=== PATIENT | male | born 1955 | race Caucasian/White ===

== ENCOUNTER 2020-04-06 10:29 | Inpatient (IN) | payer MEDICAID ==
[~2020-04-06] VITALS: Ht 190.5 cm; Wt 126.0 kg
--- NOTE | 2020-04-06 10:31 | NUR ---
PATIENT TO ROOM VIA WHEELCHAIR AND PHYSICIAN NOTIFIED OF PATIENT STYATUS
--- NOTE | 2020-04-06 10:35 | NUR ---
PT REPORTS DIFFICULTY BREATHING ASSOCIATED WITH 6 EPISODES OF DIARRHEA AND WEKANESS UPON MOVEMENT X 2 DAYS. REPORTS EXTENSIVE CARDIAC HISTORY AND SURGERIES. PT CHANGED INTO GOWN AND PLACED ON DESIGN DRAFTER CHIEF.
[2020-04-06] MEDS ORDERED: SPIRONOLACTONE50 MG PO (11:01)
[2020-04-06] MEDS ORDERED: METOPROLOL TART50 MG PO (11:01)
[2020-04-06 11:20] LABS: HEMATOCRIT 46.4 % (39.0-50.0); HEMOGLOBIN 15.8 g/dl (14.0-18.0); IMMATURE GRANULOCYTES 0.8 % (0.0-5.0); MEAN CELL VOLUME 95.3 fL CALC (80.0-100.0); MEAN CORPUSCULAR HGB 32.4 pG CALC (26.0-32.0); MEAN CORPUSCULAR HGB CONC 34.1 g/dL CAL (32.0-36.0); NEUT# 4.64 thou/uL (1.82-7.42); RED BLOOD COUNT 4.87 mill/uL (4.70-6.10); RED CELL DISTRI WIDTH 13.2 % (11.5-15.5)
[2020-04-06 11:26] LABS: INTERNATIONAL NORMALIZED RATIO 1.1 RATIO (0.7-1.3)
[2020-04-06 11:29] LABS: ALBUMIN 4.2 g/dL (3.2-5.0); ALKALINE PHOSPHATASE 55 u/l (38-126); BILIRUBIN, TOTAL 0.7 mg/dL (0.0-1.4); CHLORIDE 106 mmol/l (95-108); CREATININE 1.4 mg/dL (0.7-1.3); GFR 51 ML/MIN (>=60 (CALC)); GFR FOR AFR.AMER. > 60 ML/MIN (>=60 (CALC)); SGOT/AST 32 u/l (19-48); SODIUM 134 mmol/l (137-146)
[2020-04-06 11:32] LABS: BUN 35 mg/dL (8-23); BUN/CREATININE RATIO 25 (12-20 (CALC))
[2020-04-06 11:33] LABS: ANION GAP 18 (6-22 (CALC)); CARBON DIOXIDE 17 mmol/l (22-30)
[2020-04-06 11:34] LABS: POTASSIUM 6.5 mmol/l (3.5-5.1)
--- NOTE | 2020-04-06 11:35 | NUR ---
PT CALLED TO NURSES STATION REQUESTING BEDSIDE COMMODE STOMACH "FEELING GURGLING." BSC PLACED BEDSIDE AND ADVISED PT TO NOTIFY NURSE IF NEEDING TO USE COMMODE. VERBALIZED UNDERSTANDIGN. CALL LIGHT WITHIN REACH. PROGRAMS MANAGER IN PLACE.
[2020-04-06 11:41] LABS: MYOGLOBIN 85 ng/mL (0 - 121)
--- NOTE | 2020-04-06 12:07 | NUR ---
DR CUMMINGS IN ROOM SPEAKIGN WITH PT
--- NOTE | 2020-04-06 12:10 | NUR ---
CALCIUM GLUCONATE INFUSING TO LAC WITHOUT DIFFICULTY. SUPERVISOR CEREAL IN PLACE. VSS. VERALIZES NO NEEDS AT THIS TIME. CALL LIGHT WITHIN REACH.
--- NOTE | 2020-04-06 13:00 | NUR ---
PT RESTING ON STRETCHER IN NO APPARENT DISTRESS. RESP EVEN AN UNLABORED. SKIN TEMP COOL. HELMET BINDER IN PLACE. CALCIUM GLUCONATE CONTINUOUS TO INFUSE WITHOUT DIFFICULTY. CALL LIGHT WITHIN REACH.
--- NOTE | 2020-04-06 13:35 | NUR ---
Admission Note Report Given to: MALIA KELLEY Transported by: Wheelchair X Stretcher Transported with: X Nurse Transporter X Patent IV O2 X Leather Coverer Location: ICU X MS2 PT REPORT GIVEN TO MALIA KELLEY AND TRANSPORTED TO [facility] VIA STRETCHER WITH TELE IN PLACE.
[2020-04-06 13:50] VITALS: BP 119/90
--- NOTE | 2020-04-06 13:50 | NUR ---
PATIENT RECEIVED FROM ER IN STABLE CONDITION AT THIS TIME. PATIENT ALERT AND ORIENTED AND ORIENTED TO ROOM AND SAFTEY MEASURES. PATIENT DENIES ANY PAIN AT THIS TIME AND RESPIRATIONS ARE NON-LABORED AT THIS TIME. PATIENT IV PATENT IN LAC AND IS SALINE LOCKED AND FLUSHED WITHOUT RESITANCE. TELE MONITOR IN PLACE AND OPERATIONAL. PATIENT VERBALIZES UNDERSTANDING OF SAFETY PROCEEDURES AND CALL LIGHT WITHIN REACH AND SIDERAILS UP X 2
[2020-04-06 16:00] VITALS: BP 126/82
--- NOTE | 2020-04-06 16:10 | NUR ---
PT IS RELAXING IN BED WITH NO DISTRESS NOTED. IV SITE IS FREE FROM REDNESS OR EDEMA.
[2020-04-06 19:30] VITALS: BP 107/83
--- NOTE | 2020-04-06 20:30 | NUR ---
rECEIVED REPORT FOR THIS PT. IN BED WITH EYES OPEN AND ABLE TO MAKE NEEDS KNOWN. dENIES RESPIRATORY DISTRESS. MEDICATIONS GIVEN AND TOLERATED WELL. CONTINENT OF B/B AND USES THE URINAL WITH NO COMPLICATIONS.
[2020-04-07] VITALS: BP 109/80
[2020-04-07 04:00] VITALS: BP 100/74
--- NOTE | 2020-04-07 04:46 | NUR ---
pT IN BED WITH EYES CLOSED. nO S/S OF DISTRESS NOTED. STATED HE HAD DIFFICULTY FALLING ASLEEP DURING THE NIGHT . ENCOURAGED PT TO REPOSITION AND DIM HIS ROOM LIGHT AND HE AGREED.
[2020-04-07 07:33] VITALS: BP 103/57
--- NOTE | 2020-04-07 07:33 | NUR ---
PT LAYING IN BED. A&O X3. NO DISTRESS NOTED. PT DENIES ANY CP. DENIES ANY SOB. DENIES ANY PALPITATIONS. ASSESSMENT COMPLETED. DISCUSSED POC. CALL LIGHT IN REACH. CONTINUE TO MONITOR.
--- NOTE | 2020-04-07 08:17 | NUR ---
DR BEASLEY AND Woody ROPER ALIGNING CHECKER AT BEDSIDE DISCUSSING POC
[2020-04-07 09:38] LABS: ANION GAP 9 (6-22 (CALC)); BUN 30 mg/dL (8-23); BUN/CREATININE RATIO 26 (12-20 (CALC)); CHLORIDE 106 mmol/l (95-108); CREATININE 1.1 mg/dL (0.7-1.3); GFR > 60 ML/MIN (>=60 (CALC)); GFR FOR AFR.AMER. > 60 ML/MIN (>=60 (CALC)); POTASSIUM 4.7 mmol/l (3.5-5.1); SODIUM 133 mmol/l (137-146)
[2020-04-07 09:39] LABS: HEMOGLOBIN 13.9 g/dl (14.0-18.0); MEAN CELL VOLUME 100.5 fL CALC (80.0-100.0); MEAN CORPUSCULAR HGB 31.7 pG CALC (26.0-32.0); MEAN CORPUSCULAR HGB CONC 31.6 g/dL CAL (32.0-36.0); RED BLOOD COUNT 4.38 mill/uL (4.70-6.10); RED CELL DISTRI WIDTH 13.3 % (11.5-15.5)
[2020-04-07 09:56] LABS: CARBON DIOXIDE 23 mmol/l (22-30)
[2020-04-07 10:30] VITALS: BP 119/75
--- NOTE | 2020-04-07 11:17 | NUR ---
PT SITTING IN COUCH. INSTRUCTED PT TO CALL WHEN STOOL SAMPLE WAS OBTAINED. UPDATED PT ON MORNING LAB RESULTS. CALL LIGHT IN REACH. CONTINUE TO MONITOR.
--- NOTE | 2020-04-07 11:45 | NUR ---
STOOL SAMPLE OBTAINED. STOOL DARK IN COLOR. LABELED AND TAKEN TO LAB.
--- NOTE | 2020-04-07 13:17 | NUR ---
PT UPDATED ON OCCULT STOOL RESULTS AND POC. PT VERBALIZED UNDERSTANDING. CALL LIGHT IN REACH. CONTINUE TO MONITOR.
--- NOTE | 2020-04-07 14:16 | NUR ---
CALLED DR. DURÁN AT [phone] SPOKE TO HIM PERSONALLY REGARDING PT. HE STATED OK AND THANK YOU.
[2020-04-07 15:00] VITALS: BP 110/79
[2020-04-07 18:12] LABS: HEMATOCRIT 41.1 % (39.0-50.0); HEMOGLOBIN 13.7 g/dl (14.0-18.0)
--- NOTE | 2020-04-07 19:00 | NUR ---
OR CONSENT FOR EGD AND POSSIBLE COLONOSCOPY OBTAINED. BSC PLACED AT BEDSIDE.
--- NOTE | 2020-04-07 19:53 | NUR ---
PATIENT RESTING IN BED AT THIS TIME-AWAKE ALERT AND ORIENTEDX3. PATIENT IS IN PROCESS OF DRINKING GOLYTELY PREP FOR POSSIBLE COLONOSCOPY TOMORROW-BSC AT BEDSIDE. PATIENT WITH GOOD UNDERSTANDING OF HOW THE GOLYTELY PREP WILL PROCEED. CONSET IS SIGNED. IVF NS PATENT AND INFUSING VIA LAC SITE AT 80CC/HR. SITE IS HEALTHY AT THIS TIME. CALL LIGHT IN REACH. WILL CONT TO MONITOR.
[2020-04-07 20:00] VITALS: BP 130/89
--- NOTE | 2020-04-07 22:00 | NUR ---
PATIENT COMPLETED GOLYTELY PREP. PATIENT HAD VERY LARGE FORMED BROWN STOOL WELL BROWN WATERY STOOLS. PATIENT MEDICATED FOR ANXIETY WITH XANAX 0.5MG PO AND FOR SLEEP WITH SONATA 5MG PO . IVF NS PATENT AND INFUSING VIA LAC SITE AT 80CC/HR. CALL LIGHT IN REACH. WILL CONT TO MONITOR.
[2020-04-08] VITALS (12 sets, daily range): BP systolic 108–133; BP diastolic 68–83
--- NOTE | 2020-04-08 00:20 | NUR ---
PATIENT APPEARS SLEEPING AT THIS TIME-EYES CLOSED AND POSITIONED ON LEFT SIDE. RESPS ARE EVEN AND UNLABORED. BSC EMPTIED FOR MODERATE AMT OF LIGHT BROWN WATERY STOOL. NPO FOR PROCEDURE IN AM. IVF PATENT AND INFUSING VIA LAC SITE AT 80CC/HR. CALL LIGHT IN REACH. WILL CONT TO MONITOR.
[2020-04-08 01:03] LABS: HEMATOCRIT 38.3 % (39.0-50.0); HEMOGLOBIN 12.9 g/dl (14.0-18.0)
--- NOTE | 2020-04-08 02:47 | NUR ---
CALLED TO PATIENT ROOM- IV FOUND DISLODGED FROM LAC SITE-CATH INTACT. DSD APPLIED TO LEFT AC SITE. NEW IV SITE STARTED TO LEFT HAND-#22 GAUGE WITH GOOD BLOOD RETURN. IVF NS INFUSING AT 80CC/HR ORDERED. PATIENT REMAINS NPO FOR GI PROCEDURES LATER TODAY. PATIENT IS FRUSTRATED OVER NOT BEING ABLE TO SLEEP- BEING AWAKEN FOR BM'S, TELE MONITOR BEING OFF AND IV BEING DISLODGED. PATIENT HAD ANOTHER PALE YELLOW WATERY STOOL WITH FLECKS. OFFERED CLEAN GOWN BUT PATIENT REFUSED AT THIS TIME-"JUST WANTS TO GO TO SLEEP". CALL LIGHT IN REACH. WILL CONT TO MONITOR.
--- NOTE | 2020-04-08 04:17 | NUR ---
PATIENT APPEARS SLEEPING AT THIS TIME WITH HOB ELEVATED AND EYES CLOSED. RESPS ARE EVEN AND UNLABORED. RFEMAINS NPO FOR GI PROCEDURE LATER TODAY. IVF NS PATENT ANDINFUSING VIA LEFT HAND SITE AT 80CC/HR. SITE REMAINS HEALTHY. CALL LIGHT IN REACH. WILL CONT TO MONITOR.
[2020-04-08 06:53] LABS: HEMATOCRIT 38.8 % (39.0-50.0); HEMOGLOBIN 12.9 g/dl (14.0-18.0)
--- NOTE | 2020-04-08 07:05 | NUR ---
PT SLEEPING IN BED, AWAKENED TO COMPLETE ASSESSMENT. A&O X3. NO DISTRESS NOTED. PT DENIES ANY PAIN AT THIS TIME. STATES HE FINISHED HIS PREP, PER AUTO DAMAGE ADJUSTER REPORT, PTS BM WERE BEGINNING TO BECOME CLEARER IN COLOR. UPDATED PT ON POC AND EXPECTED PROCEDURE. HGB SUSTAINING AT 12.9. ASSESSMENT COMPLETED. DISCUSSED POC. CALL LIGHT IN REACH. CONTINUE TO MONITOR.
--- NOTE | 2020-04-08 08:38 | NUR ---
DR BEASLEY AND Woody ROPER UX DESIGN MANAGER AT BEDSIDE DISCUSSING POC
--- NOTE | 2020-04-08 08:39 | NUR ---
DR BEASLEY AND Tamiko JOEL FAGOTING MACHINE OPERATOR AT BEDSIDE DISCUSSING POC
--- NOTE | 2020-04-08 12:19 | NUR ---
PT TAKEN VIA STRETCHER ACCOMPANIED BY Laxmi MADERA RN TO OR
--- NOTE | 2020-04-08 14:02 | NUR ---
PT ARRIVED VIA STRETCHER ACCOMPANIED BY SAFIA MURPHY. PT IN STABLE CONDITION ON ROOM AIR. PT DRINKING JUICE WITH NO DIFFICULTY. CONNECTED PT BACK TO [employer]. CALL LIGHT IN REACH. CONTINUE TO MONITOR.
--- NOTE | 2020-04-08 17:42 | NUR ---
PT SITTING IN BED. NO DISTRESS NOTED. CALL LIGHT IN REACH. CONTINUE TO MONITOR.
--- NOTE | 2020-04-08 20:06 | NUR ---
PATIENT RESTING IN BED AT THIS TIME WATCHING TV. AWAKE ALERT AND ORIENTEDX3. IVF NS PATENT AND INFUSING VIA LEFT HAND SITE AT 80CC/HR. SITE IS HEALTHY. TELE MONITOR IN PLACE. VOIDING QS STU URINE IN BSC. CALL LIGHT IN REACH. WILL CONT TO MONITOR.
--- NOTE | 2020-04-08 20:38 | NUR ---
RESTING IN BED-MEDICATED WITH XANAX 0.5MG PO FOR ANXIETY PER PATIENT REQUEST. CALL LIGHT IN REACH. WILL CONT TO MONITOR.
[2020-04-09] VITALS: BP 115/81
--- NOTE | 2020-04-09 00:24 | NUR ---
PATIENT APPEARS SLEEPING AFTER TAKING SONATA FOR SLEEP. EYES ARE CLOSED. RESPS ARE EVEN AND UNLABORED. TELE MONITOR IN PLACE. IVF NS PATENT AND INFUSING VIA LEFT HAND SITE AT 80CC/HR. SITE REMAINS HEALTHY. CALL LIGHT IN REACH. WILL CONT TO MONITOR.
[2020-04-09 04:00] VITALS: BP 116/82
--- NOTE | 2020-04-09 05:36 | NUR ---
APPEARS SLEEPING AT THIS TIME POSITIONED ON HIS LEFT SIDE. RESPS EVEN AND UNLABORED. VOIDING QS STU URINE. IVF PATENT AND INFUSING VIA LEFT HAND SITE AT 80CC/HR. CALL LIGHT IN REACH. WILL CONT TO MONITOR.
[2020-04-09 06:11] LABS: HEMATOCRIT 37.8 % (39.0-50.0); HEMOGLOBIN 12.3 g/dl (14.0-18.0); IMMATURE GRANULOCYTES 0.5 % (0.0-5.0); MEAN CELL VOLUME 97.9 fL CALC (80.0-100.0); MEAN CORPUSCULAR HGB 31.9 pG CALC (26.0-32.0); MEAN CORPUSCULAR HGB CONC 32.5 g/dL CAL (32.0-36.0); NEUT# 3.03 thou/uL (1.82-7.42); RED BLOOD COUNT 3.86 mill/uL (4.70-6.10); RED CELL DISTRI WIDTH 13.1 % (11.5-15.5)
[2020-04-09 06:17] LABS: ALBUMIN 3.2 g/dL (3.2-5.0); ALKALINE PHOSPHATASE 44 u/l (38-126); ANION GAP 7 (6-22 (CALC)); BILIRUBIN, TOTAL 0.3 mg/dL (0.0-1.4); BUN 17 mg/dL (8-23); BUN/CREATININE RATIO 15 (12-20 (CALC)); CARBON DIOXIDE 28 mmol/l (22-30); CHLORIDE 106 mmol/l (95-108); CREATININE 1.1 mg/dL (0.7-1.3); GFR > 60 ML/MIN (>=60 (CALC)); GFR FOR AFR.AMER. > 60 ML/MIN (>=60 (CALC)); POTASSIUM 4.9 mmol/l (3.5-5.1); SGOT/AST 31 u/l (19-48); SODIUM 136 mmol/l (137-146); TOTAL PROTEIN 5.3 g/dL (6.3-8.2)
[2020-04-09 07:28] VITALS: BP 122/83
--- NOTE | 2020-04-09 07:28 | NUR ---
PT LAYING IN BED. A&O X3. NO DISTRESS NOTED. PT REPORTS TO BE FEELING WELL THIS MORNING, REPORTS NO BOWEL MOVEMENT THROUGHOUT THE NIGHT. HGB STABLE AT 12.3. ASSESSMENT COMPLETED. DISCUSSED POC. ASSESSMENT COMPLETED. CALL LIGHT IN REACH. CONTINUE TO MONITOR.
--- NOTE | 2020-04-09 09:00 | NUR ---
DR BEASLEY AT BEDSIDE DISCUSSING POC
[2020-04-09] MEDS ORDERED: LASIX 20 MG TAB20 MG PO (09:05)
[2020-04-09 11:25] VITALS: BP 121/76
--- NOTE | 2020-04-09 11:54 | NUR ---
Discharge instructions given. Patient verbalizes understanding of same. Discharged in stable condition to home accompanied by this song writer. Discharge instructions given. Patient verbalizes understanding of same. All belongings sent with pt.
== END 2020-04-09 11:54 | disposition home or self-care (01) | DRG 379 ==
LOC: ED 10:29 → ED-I 11:08 → ED 12:22 → MS2 12:23
PROVIDERS: Emergency Medicine; Nurse Practitioner; ADMIT Internal Medicine; ATTEND Internal Medicine
PROC: 0DJD8ZZ Inspection of Lower Intestinal Tract, Via Natural or Artificial Opening Endoscopic (ICD-10-PCS; principal; 2020-04-08)
PROC: 0DB68ZX Excision of Stomach, Via Natural or Artificial Opening Endoscopic, Diagnostic (ICD-10-PCS; 2020-04-08)
DX: K92.1 Melena (principal); E87.5 Hyperkalemia; R73.9 Hyperglycemia, unspecified; R07.9 Chest pain, unspecified; I10 Essential (primary) hypertension; J44.9 Chronic obstructive pulmonary disease, unspecified; K29.70 Gastritis, unspecified, without bleeding; K20.90 Esophagitis, unspecified without bleeding; K44.9 Diaphragmatic hernia without obstruction or gangrene; F17.210 Nicotine dependence, cigarettes, uncomplicated; Z20.828 Contact with and (suspected) exposure to other viral communicable diseases; Z79.899 Other long term (current) drug therapy; Z88.0 Allergy status to penicillin
CPT/HCPCS: S0164

== ENCOUNTER 2021-09-07 07:10 | Emergency (ER) | payer MEDICARE, MEDICAID ==
[~2021-09-07] VITALS: Ht 190.5 cm; Wt 120.5 kg
[~2021-09-07 07:10] MED LIST: LASIX 20 MG TAB20 MG PO; METOPROLOL TART50 MG PO; SPIRONOLACTONE50 MG PO
[2021-09-07 08:03] LABS: IMMATURE GRANULOCYTES 0.4 % (0.0-5.0); MEAN CELL VOLUME 92.3 fL CALC (80.0-100.0); MEAN CORPUSCULAR HGB 30.8 pG CALC (26.0-32.0); MEAN CORPUSCULAR HGB CONC 33.4 g/dL CAL (32.0-36.0); NEUT# 5.66 thou/uL (1.82-7.42); RED BLOOD COUNT 5.42 mill/uL (4.70-6.10); RED CELL DISTRI WIDTH 12.8 % (11.5-15.5)
[2021-09-07 08:04] LABS: HEMOGLOBIN 16.7 g/dl (14.0-18.0)
[2021-09-07 08:06] LABS: URINE BILIRUBIN - DIPSTICK NEGATIVE (NEGATIVE); URINE BLOOD DIPSTICK NEGATIVE (NEGATIVE); URINE COLOR YELLOW; URINE GLUCOSE - DIPSTICK NEGATIVE (NEGATIVE); URINE KETONE NEGATIVE (NEGATIVE); URINE LEUK ESTERASE NEGATIVE (NEGATIVE); URINE PROTEIN - DIPSTICK NEGATIVE (NEG-TRACE); URINE UROBILINOGEN - DIPSTICK 0.2 E.U./dL (0.2)
[2021-09-07 08:10] LABS: URINE NITRITE - DIPSTICK NEGATIVE (Negative)
[2021-09-07 08:14] LABS: BILIRUBIN, TOTAL 0.3 mg/dL (0.0-1.4); BUN 15 mg/dL (8-23); BUN/CREATININE RATIO 13 (12-20 (CALC)); CHLORIDE 106 mmol/l (95-108); CREATININE 1.2 mg/dL (0.7-1.3); GFR > 60 ML/MIN (>=60 (CALC)); GFR FOR AFR.AMER. > 60 ML/MIN (>=60 (CALC)); LIPASE 53 u/l (23-300); POTASSIUM 4.8 mmol/l (3.5-5.1); SGOT/AST 33 u/l (19-48); SODIUM 135 mmol/l (137-146)
[2021-09-07 08:15] LABS: ALBUMIN 4.2 g/dL (3.2-5.0); ALKALINE PHOSPHATASE 92 u/l (38-126); ANION GAP 16 (6-22 (CALC)); CARBON DIOXIDE 18 mmol/l (22-30); TOTAL PROTEIN 6.5 g/dL (6.3-8.2)
[2021-09-07 11:15] VITALS: BP 133/77
== END 2021-09-07 11:15 | disposition home or self-care (01) ==
LOC: ED 07:10
PROC: 0T9B70Z Drainage of Bladder with Drainage Device, Via Natural or Artificial Opening (ICD-10-PCS; principal; 2021-09-07)
DX: R33.9 Retention of urine, unspecified (principal); Q60.0 Renal agenesis, unilateral; N20.0 Calculus of kidney; I10 Essential (primary) hypertension; F17.200 Nicotine dependence, unspecified, uncomplicated; Z95.1 Presence of aortocoronary bypass graft

== ENCOUNTER 2021-09-10 04:39 | Emergency (ER) | payer MEDICARE, MEDICAID ==
[2021-09-10] VITALS (9 sets, daily range): BP systolic 141–172; BP diastolic 85–106
[~2021-09-10] VITALS: Ht 190.5 cm; Wt 120.5 kg
[2021-09-10 05:05] LABS: URINE BILIRUBIN - DIPSTICK NEGATIVE (NEGATIVE); URINE BLOOD DIPSTICK TRACE-INTACT (NEGATIVE); URINE COLOR YELLOW; URINE GLUCOSE - DIPSTICK NEGATIVE (NEGATIVE); URINE KETONE NEGATIVE (NEGATIVE); URINE PH 8.5 (4.5-8.0); URINE UROBILINOGEN - DIPSTICK 0.2 E.U./dL (0.2)
[2021-09-10 05:10] LABS: URINE LEUK ESTERASE SMALL (NEGATIVE); URINE NITRITE - DIPSTICK POSITIVE (Negative); URINE PROTEIN - DIPSTICK NEGATIVE (NEG-TRACE)
[2021-09-10 05:11] LABS: URINE BACTERIA MODERATE hpf; URINE CALCIUM OXALATE CRYSTALS MODERATE lpf; URINE EPITHELIAL CELLS MODERATE EPI/hpf (0-FEW); URINE WBC 20-50 WBC/hpf (0-5)
[2021-09-10 05:18] LABS: HEMATOCRIT 52.6 % (39.0-50.0); HEMOGLOBIN 18.1 g/dl (14.0-18.0); IMMATURE GRANULOCYTES 0.1 % (0.0-5.0); MEAN CELL VOLUME 91.2 fL CALC (80.0-100.0); MEAN CORPUSCULAR HGB 31.4 pG CALC (26.0-32.0); MEAN CORPUSCULAR HGB CONC 34.4 g/dL CAL (32.0-36.0); NEUT# 6.52 thou/uL (1.82-7.42); RED BLOOD COUNT 5.77 mill/uL (4.70-6.10); RED CELL DISTRI WIDTH 12.7 % (11.5-15.5)
[2021-09-10 05:26] LABS: ALBUMIN 4.3 g/dL (3.2-5.0); ALKALINE PHOSPHATASE 83 u/l (38-126); ANION GAP 15 (6-22 (CALC)); BILIRUBIN, TOTAL 0.7 mg/dL (0.0-1.4); BUN 18 mg/dL (8-23); BUN/CREATININE RATIO 13 (12-20 (CALC)); CARBON DIOXIDE 21 mmol/l (22-30); CHLORIDE 105 mmol/l (95-108); CREATININE 1.4 mg/dL (0.7-1.3); GFR 51 ML/MIN (>=60 (CALC)); GFR FOR AFR.AMER. > 60 ML/MIN (>=60 (CALC)); POTASSIUM 4.3 mmol/l (3.5-5.1); SGOT/AST 37 u/l (19-48); SODIUM 137 mmol/l (137-146); TOTAL PROTEIN 7.2 g/dL (6.3-8.2)
[2021-09-10] MEDS ORDERED: CIPROFLOXACN500 MG PO (05:52)
== END 2021-09-10 06:30 | disposition home or self-care (01) ==
LOC: ED 04:39
PROVIDERS: Emergency Medicine
PROC: 0T9B70Z Drainage of Bladder with Drainage Device, Via Natural or Artificial Opening (ICD-10-PCS; principal; 2021-09-10)
DX: R33.9 Retention of urine, unspecified (principal); N39.0 Urinary tract infection, site not specified; R97.20 Elevated prostate specific antigen [PSA]; I10 Essential (primary) hypertension; F17.200 Nicotine dependence, unspecified, uncomplicated; Z95.1 Presence of aortocoronary bypass graft
CPT/HCPCS: J1956

== ENCOUNTER 2021-12-19 09:03 | Emergency (ER) | payer MEDICARE, MEDICAID ==
[~2021-12-19] VITALS: Ht 188 cm; Wt 121.2 kg
[~2021-12-19 09:03] MED LIST changes: +CIPROFLOXACN500 MG PO
[2021-12-19] MEDS ORDERED: CEPHALEXIN500 MG PO ×2 (09:50→10:01)
[2021-12-19] MEDS ORDERED: TAMSULOSIN0.4 MG PO (09:56)
[2021-12-19] MEDS ORDERED: TRAMADOL HYDROC50 M1 PO (09:57)
[2021-12-19 10:06] VITALS: BP 120/81
== END 2021-12-19 10:07 | disposition home or self-care (01) ==
LOC: ED 09:03
PROC: 0HQGXZZ Repair Left Hand Skin, External Approach (ICD-10-PCS; principal; 2021-12-19)
DX: S61.211A Laceration without foreign body of left index finger without damage to nail, initial encounter (principal); S61.213A Laceration without foreign body of left middle finger without damage to nail, initial encounter; I10 Essential (primary) hypertension; F17.200 Nicotine dependence, unspecified, uncomplicated; W10.9XXA Fall (on) (from) unspecified stairs and steps, initial encounter; Y92.009 Unspecified place in unspecified non-institutional (private) residence as the place of occurrence of the external cause; Z95.1 Presence of aortocoronary bypass graft

== ENCOUNTER 2021-12-26 09:27 | Emergency (ER) | payer MEDICARE, MEDICAID ==
[~2021-12-26] VITALS: Ht 188 cm; Wt 100.0 kg
[~2021-12-26 09:27] MED LIST changes: +CEPHALEXIN500 MG PO; +TAMSULOSIN0.4 MG PO; +TRAMADOL HYDROC50 M1 PO
[2021-12-26 09:56] VITALS: BP 141/75
== END 2021-12-26 09:59 | disposition home or self-care (01) ==
LOC: ED 09:27
DX: T81.33XA Disruption of traumatic injury wound repair, initial encounter (principal); Y84.8 Other medical procedures as the cause of abnormal reaction of the patient, or of later complication, without mention of misadventure at the time of the procedure

== ENCOUNTER 2021-12-31 09:40 | Emergency (ER) | payer MEDICARE, MEDICAID ==
[~2021-12-31] VITALS: Ht 188 cm; Wt 120.2 kg
[2021-12-31 10:10] VITALS: BP 142/89
== END 2021-12-31 10:22 | disposition home or self-care (01) ==
LOC: ED 09:40
DX: S61.211D Laceration without foreign body of left index finger without damage to nail, subsequent encounter (principal); X58.XXXD Exposure to other specified factors, subsequent encounter; I10 Essential (primary) hypertension; Z95.1 Presence of aortocoronary bypass graft; F17.200 Nicotine dependence, unspecified, uncomplicated

== ENCOUNTER 2022-01-23 01:06 | Emergency (ER) | payer MEDICARE, MEDICAID ==
[~2022-01-23] VITALS: Ht 188 cm; Wt 118.0 kg
[2022-01-23 01:15] VITALS: BP 142/104
[2022-01-23 01:31] VITALS: BP 113/79
[2022-01-23] MEDS ORDERED: LASIX 20 MG TAB20 MG PO (01:41)
[2022-01-23 01:45] VITALS: BP 130/83
[2022-01-23] MEDS ORDERED: TAMSULOSIN0.4 MG PO (01:45)
[2022-01-23] MEDS ORDERED: HYDROXYZ PAM50 MG PO (01:45)
[2022-01-23] MEDS ORDERED: BACTRIM DS1 TAB PO (01:45)
[2022-01-23 02:01] VITALS: BP 144/97
== END 2022-01-23 02:17 | disposition home or self-care (01) ==
LOC: ED 01:06
PROC: 0T9B70Z Drainage of Bladder with Drainage Device, Via Natural or Artificial Opening (ICD-10-PCS; principal; 2022-01-23)
DX: R33.9 Retention of urine, unspecified (principal); I10 Essential (primary) hypertension; F17.200 Nicotine dependence, unspecified, uncomplicated; Z95.1 Presence of aortocoronary bypass graft

== ENCOUNTER 2022-01-30 12:40 | Emergency (ER) | payer MEDICARE, MEDICAID ==
[~2022-01-30] VITALS: Ht 188 cm; Wt 113.6 kg
[~2022-01-30 12:40] MED LIST changes: +BACTRIM DS1 TAB PO; +HYDROXYZ PAM50 MG PO
[2022-01-30 12:48] VITALS: BP 124/87
[2022-01-30] MEDS ORDERED: VALIUM2 MG PO (12:56)
[2022-01-30 13:00] VITALS: BP 118/97
[2022-01-30 13:30] VITALS: BP 135/89
[2022-01-30 14:00] VITALS: BP 121/87
[2022-01-30 14:06] VITALS: BP 121/87
== END 2022-01-30 14:06 | disposition home or self-care (01) ==
LOC: ED 12:40
DX: Z46.6 Encounter for fitting and adjustment of urinary device (principal); R33.9 Retention of urine, unspecified; I10 Essential (primary) hypertension; F17.210 Nicotine dependence, cigarettes, uncomplicated; Z95.1 Presence of aortocoronary bypass graft

== ENCOUNTER 2022-06-21 04:47 | Emergency (ER) | payer MEDICARE, MEDICAID ==
[~2022-06-21] VITALS: Ht 188 cm; Wt 113.0 kg
[~2022-06-21 04:47] MED LIST changes: +VALIUM2 MG PO
[2022-06-21] MEDS ORDERED: BACTRIM DS1 TAB PO (05:20)
[2022-06-21 05:56] VITALS: BP 107/79
[2022-06-21 06:01] LABS: URINE BILIRUBIN - DIPSTICK NEGATIVE (NEGATIVE); URINE BLOOD DIPSTICK MODERATE (NEGATIVE); URINE COLOR YELLOW; URINE GLUCOSE - DIPSTICK NEGATIVE (NEGATIVE); URINE KETONE NEGATIVE (NEGATIVE); URINE UROBILINOGEN - DIPSTICK 0.2 E.U./dL (0.2)
[2022-06-21 06:06] LABS: URINE LEUK ESTERASE MODERATE (NEGATIVE); URINE NITRITE - DIPSTICK POSITIVE (Negative)
[2022-06-21 06:08] LABS: URINE EPITHELIAL CELLS MODERATE EPI/hpf (0-FEW); URINE PROTEIN - DIPSTICK NEGATIVE (NEG-TRACE); URINE RBC 25-50 RBC/hpf (0-5); URINE WBC >100 WBC/hpf (0-5)
[2022-06-21 06:09] LABS: URINE BACTERIA MANY hpf
== END 2022-06-21 06:03 | disposition home or self-care (01) ==
LOC: ED 04:47
PROVIDERS: Family Medicine
PROC: 0T9B70Z Drainage of Bladder with Drainage Device, Via Natural or Artificial Opening (ICD-10-PCS; principal; 2022-06-21)
DX: R33.9 Retention of urine, unspecified (principal); I10 Essential (primary) hypertension; F17.200 Nicotine dependence, unspecified, uncomplicated; Z95.1 Presence of aortocoronary bypass graft

== ENCOUNTER 2022-11-01 06:35 | Emergency (ER) | payer MEDICARE, MEDICAID ==
[~2022-11-01] VITALS: Ht 188 cm; Wt 110.2 kg
[~2022-11-01 06:35] MED LIST changes: +ALDACTONE25 MG PO; +ERTAPENEM1 GM IV; +METOPROL TAR25 MG PO; +METOPROLOL TAR100 MG PO
[2022-11-01] MEDS ORDERED: TRAZODONE HYDR150 MG PO (06:50)
[2022-11-01 07:13] LABS: BASO% 0.6 % (0-3); EOS% 2.4 % (0-8); HEMATOCRIT 45.7 % (39.0-50.0); HEMOGLOBIN 15.6 g/dl (14.0-18.0); IMMATURE GRANULOCYTES 0.4 % (0.0-5.0); LYMPH% 27.6 % (15-41); MEAN CORPUSCULAR HGB 30.5 pG CALC (26.0-32.0); MEAN CORPUSCULAR HGB CONC 34.1 g/dL CAL (32.0-36.0); MONO% 10.1 % (2-13); NEUT# 2.99 thou/uL (1.82-7.42); NEUT% 58.9 % (42-76); RED BLOOD COUNT 5.11 mill/uL (4.70-6.10); RED CELL DISTRI WIDTH 12.3 % (11.5-15.5)
[2022-11-01 07:14] LABS: URINE BILIRUBIN - DIPSTICK NEGATIVE (NEGATIVE); URINE BLOOD DIPSTICK NEGATIVE (NEGATIVE); URINE COLOR YELLOW; URINE GLUCOSE - DIPSTICK NEGATIVE (NEGATIVE); URINE KETONE NEGATIVE (NEGATIVE); URINE LEUK ESTERASE NEGATIVE (NEGATIVE); URINE PROTEIN - DIPSTICK 30 mg/dL (NEG-TRACE); URINE SPECIFIC GRAVITY 1.015; URINE UROBILINOGEN - DIPSTICK 0.2 E.U./dL (0.2)
[2022-11-01 07:15] LABS: MEAN CELL VOLUME 89.4 fL CALC (80.0-100.0)
[2022-11-01 07:17] LABS: URINE NITRITE - DIPSTICK NEGATIVE (Negative)
[2022-11-01 07:29] LABS: BILIRUBIN, TOTAL 0.4 mg/dL (0.2-1.3); CREATININE 1.5 mg/dL (0.7-1.3); POTASSIUM 4.9 mmol/l (3.5-5.1); TOTAL PROTEIN 6.5 g/dL (6.3-8.2)
[2022-11-01] MEDS ORDERED: MIRALAX17 GM PO (09:04)
[2022-11-01 10:12] VITALS: BP 130/88
== END 2022-11-01 10:22 | disposition home or self-care (01) ==
LOC: ED 06:35
PROVIDERS: Family Medicine
PROC: 0T9B70Z Drainage of Bladder with Drainage Device, Via Natural or Artificial Opening (ICD-10-PCS; principal; 2022-11-01)
DX: R33.9 Retention of urine, unspecified (principal); K59.00 Constipation, unspecified; I10 Essential (primary) hypertension; F17.200 Nicotine dependence, unspecified, uncomplicated; Z95.1 Presence of aortocoronary bypass graft

== ENCOUNTER 2022-11-26 11:35 | Observation (INO) | payer MEDICARE, MEDICAID ==
[2022-11-26] VITALS (29 sets, daily range): BP systolic 60–127; BP diastolic 30–84
[~2022-11-26] VITALS: Ht 188 cm; Wt 99.6 kg
[~2022-11-26 11:35] MED LIST changes: +MIRALAX17 GM PO; +TRAZODONE HYDR150 MG PO
[2022-11-26] MEDS ORDERED: LISINOPRIL10 MG PO (12:15)
[2022-11-26 13:25] LABS: BASO% 0.2 % (0-3); HEMATOCRIT 45.2 % (39.0-50.0); HEMOGLOBIN 15.1 g/dl (14.0-18.0); IMMATURE GRANULOCYTES 0.2 % (0.0-5.0); LYMPH% 15.9 % (15-41); MEAN CELL VOLUME 92.4 fL CALC (80.0-100.0); MEAN CORPUSCULAR HGB 30.9 pG CALC (26.0-32.0); MEAN CORPUSCULAR HGB CONC 33.4 g/dL CAL (32.0-36.0); MONO% 8.3 % (2-13); NEUT# 8.12 thou/uL (1.82-7.42); NEUT% 75.4 % (42-76); RED BLOOD COUNT 4.89 mill/uL (4.70-6.10); RED CELL DISTRI WIDTH 14.8 % (11.5-15.5)
[2022-11-26 13:36] LABS: BILIRUBIN, TOTAL 0.8 mg/dL (0.2-1.3); CREATININE 1.8 mg/dL (0.7-1.3); TOTAL PROTEIN 6.6 g/dL (6.3-8.2)
[2022-11-26 13:37] LABS: POTASSIUM 5.2 mmol/l (3.5-5.1)
[2022-11-26 14:16] LABS: URINE BILIRUBIN - DIPSTICK Negative (NEGATIVE); URINE BLOOD DIPSTICK Small (NEGATIVE); URINE COLOR Yellow; URINE GLUCOSE - DIPSTICK Negative (NEGATIVE); URINE KETONE Trace mg/dL (NEGATIVE); URINE LEUK ESTERASE Trace (NEGATIVE); URINE NITRITE - DIPSTICK Negative (Negative); URINE PH 5.5 (4.5-8.0); URINE PROTEIN - DIPSTICK >=300 mg/dL (NEG-TRACE); URINE UROBILINOGEN - DIPSTICK 0.2 E.U./dL (0.2)
[2022-11-26 14:25] LABS: URINE HYALINE CAST RARE lpf (NONE-RARE)
[2022-11-26] MEDS ORDERED: LASIX 20 MG TAB20 MG PO (19:49)
[2022-11-27 03:26] VITALS: BP 146/87
[2022-11-27 05:20] VITALS: BP 146/87
[2022-11-27 06:37] LABS: HEMOGLOBIN 13.4 g/dl (14.0-18.0); MEAN CELL VOLUME 93.5 fL CALC (80.0-100.0); MEAN CORPUSCULAR HGB 31.3 pG CALC (26.0-32.0); MEAN CORPUSCULAR HGB CONC 33.5 g/dL CAL (32.0-36.0); RED BLOOD COUNT 4.28 mill/uL (4.70-6.10); RED CELL DISTRI WIDTH 15.1 % (11.5-15.5)
[2022-11-27 06:56] LABS: ANION GAP 9 (6-22 (CALC)); BUN 27 mg/dL (8-23); BUN/CREATININE RATIO 21 (12-20 (CALC)); CALCULATED LDLCHOLESTEROL 80 mg/dL (62-129 (CALC)); CHLORIDE 106 mmol/l (95-108); CHOLESTEROL HDL RATIO 3.4 (<4.4 (CALC)); CREATININE 1.3 mg/dL (0.7-1.3); GFR FOR AFR.AMER. > 60 ML/MIN (>=60 (CALC)); GFR OTHER RACES 55 ML/MIN (>=60 (CALC)); HDL CHOLESTEROL 43 mg/dL (39.0-59.0); MAGNESIUM 1.8 mg/dL (1.6-2.3); POTASSIUM 5.1 mmol/l (3.5-5.1); SODIUM 134 mmol/l (137-146); TOTAL CHOLESTEROL 145 mg/dl (0-199); TOTAL TRIGLYCERIDES 111 mg/dl (0-149); VLDL CHOLESTROL 22 mg/dl (4-45 (CALC))
[2022-11-27 07:03] LABS: CARBON DIOXIDE 24 mmol/l (22-30)
[2022-11-27 07:08] VITALS: BP 132/70
[2022-11-27 10:57] VITALS: BP 147/81
[2022-11-27] MEDS ORDERED: MOTRIN400 MG/TAB PO (14:08)
[2022-11-27] MEDS ORDERED: PERCOCET 5/325M1 TAB PO (14:24)
== END 2022-11-27 15:19 | disposition home health service (06) ==
LOC: ED 11:35 → ED-I 14:50 → ED 15:41 → MS2 15:42
PROVIDERS: Nurse Practitioner; ADMIT Student in an Organized Health Care Education/Training Program; ATTEND Student in an Organized Health Care Education/Training Program
PROC: 0T2BX0Z Change Drainage Device in Bladder, External Approach (ICD-10-PCS; principal; 2022-11-26)
DX: E86.0 Dehydration (principal); E87.20 Acidosis, unspecified; E87.5 Hyperkalemia; E87.1 Hypo-osmolality and hyponatremia; N17.9 Acute kidney failure, unspecified; I95.9 Hypotension, unspecified; S80.811A Abrasion, right lower leg, initial encounter; S61.219A Laceration without foreign body of unspecified finger without damage to nail, initial encounter; I10 Essential (primary) hypertension; I25.10 Atherosclerotic heart disease of native coronary artery without angina pectoris; N31.9 Neuromuscular dysfunction of bladder, unspecified; F17.210 Nicotine dependence, cigarettes, uncomplicated; F32.A Depression, unspecified; W10.9XXA Fall (on) (from) unspecified stairs and steps, initial encounter; Y92.009 Unspecified place in unspecified non-institutional (private) residence as the place of occurrence of the external cause; Z96.0 Presence of urogenital implants; Z95.1 Presence of aortocoronary bypass graft; Z90.5 Acquired absence of kidney; Z91.81 History of falling; Z95.3 Presence of xenogenic heart valve

== ENCOUNTER 2022-12-13 15:34 | Inpatient (IN) | payer MEDICARE, MEDICAID ==
[~2022-12-13] VITALS: Ht 188 cm; Wt 111.0 kg
[2022-12-13] VITALS (29 sets, daily range): BP systolic 58–119; BP diastolic 40–100
[~2022-12-13 15:34] MED LIST changes: +LISINOPRIL10 MG PO; +MOTRIN400 MG/TAB PO; +PERCOCET 5/325M1 TAB PO
--- NOTE | 2022-12-13 15:56 | NUR ---
PATIENT ARRIVED TO ROOM 14
--- NOTE | 2022-12-13 16:00 | NUR ---
PATIENT IN BED. VITALS STABLE. PATIENT VERBALIZED NO NEEDS AT THIS TIME.
--- NOTE | 2022-12-13 17:32 | NUR ---
PT ADMINISTERED PAIN MEDICATION PER MD ORDERS. WILL FOLLOW UP ON PAIN.
--- NOTE | 2022-12-13 17:58 | NUR ---
PT VERBALIZED PT HAS IMPROVED. PT VERBALIZED NO NEEDS AT THIS TIME.
--- NOTE | 2022-12-13 18:42 | NUR ---
PATIENT IN ROOM .VITALS STABLE. PT VERBALIZED NO NEEDS AT THIS TIME.
--- NOTE | 2022-12-13 19:05 | NUR ---
REPORT RECEIVED FROM JEFFREY WHITE AND CARE OF PT ASSUMED AT THIS TIME
--- NOTE | 2022-12-13 20:05 | NUR ---
PT RESTING IN BED TALKING ON PHONE. RESP EVEN AND UNLABORED. NO DISTRESS NOTED. INFORMED PT OF PLAN OF CARE AND CONTINUED WAIT TIME AND HE VERBALIZED UNDERSTANDING. CALL LIGHT IN REACH.
--- NOTE | 2022-12-13 21:20 | NUR ---
REPORT CALLED TO JEFFREY WEINSTEIN
--- NOTE | 2022-12-13 21:45 | NUR ---
PT TRANSPORTED TO [facility] VIA STRETCHER IN STABLE CONDITION
[2022-12-13] MEDS ORDERED: METOPROLOL TAR100 MG PO (22:31)
[2022-12-13] MEDS ORDERED: ABILIFY10 MG PO (22:32)
--- NOTE | 2022-12-14 | NUR ---
PATIENT ADMITTED FROM ER VIA STRETCHER WITH NSG SUP IN ATTENDANCE. PATIENT ADMITTED FOR FX RIGHT FIBULA AFTER FALL YESTERDAY. PATIENT MAX ASSIST TO TRANSFER TO THE BED. PATIENT IS AWAKE ALERT AND ORIENTEDX3. PATIENT ADMITTED WITH BARRETT CATH FROM HOME DRAINING STU URINE. PATIENT STATES THAT THE BARRETT WAS PLACED BY DR. BAUTISTA-UROLOGIST IN [place] FOR URINARY RETENSION. PATIENT STATES THAT HE ALSO HAS TO F/UP QWITH DR. ARGUETA FOR NEPHROLOGY. NO LABS WERE DRAWN IN THE ER-WILL BE GETTING LABS TIS MORNING ORDERED. PATIENT ALSO STATES THAT HE HAD LAST BM ON 12/12 AND STATES THAT HIS STOOLS WERE "BLACK" DIARRHEA. PATIENT LIVES ALONE AND STATES THAT HE DOES HAVE HOME HEALTH BUTDOESN'T REMEMBER THE NAME OF THE [employer]. PATIENT WITH IV SITE TO RAC INTACT AND FLUSHED-IVF NS HUNG AND INFUSING AT 80CC/HR. PATIENT MEDICATED FOR RLE PAIN WITH ROXICODONE 5MG PO FOR 9/10 PAIN SCALE. ALSO WAS MEDICATED FOR SLEEP WITH TRAZADONE. BARRETT CONNECTED TOBEDSIDE DRAINAGE BAG AND LEG BAG HE HAD WAS DISCARDED. ORIENTED TO ROOM AND SURROUNDINGS. INSTREUCTED ON USE OF NURSE CALL LIGHT SYSTEM AND TV REMOTE. OFFERED PATIENT HEALTHY CHOICE TURKEY DINNER BUT HE DECLIKNED. PROVIDED WITH PUDDING, JELLO AND BREAKFAST BARS PER PATIENT REQUEST. SAFETY PRECAUTIONS REINFORCED. CALL LIGHT IN REACH. WILL CONT TO MONITOR.
--- NOTE | 2022-12-14 04:27 | NUR ---
PATIENT RESTING IN BED-C/O RLE PAIN. MEDICATED WITH ROXICODONE 5MG PO FOR 9/10M PAIN SCALE. IVF NS PATENT AND INFUSING VIA RAC SITE AT 80-CC/HR. BARRETT CATH PATENT AND DRAINING YELLOW URINE. SAFETY PRECAUTIONS REINFORCED. CALL LIGHT IN REACH. WILL CONT TO MONITOR.
[2022-12-14 04:30] VITALS: BP 110/67
[2022-12-14 05:22] LABS: HEMATOCRIT 41.6 % (39.0-50.0); HEMOGLOBIN 14.3 g/dl (14.0-18.0); MEAN CORPUSCULAR HGB 31.6 pG CALC (26.0-32.0); MEAN CORPUSCULAR HGB CONC 34.4 g/dL CAL (32.0-36.0); RED BLOOD COUNT 4.52 mill/uL (4.70-6.10); RED CELL DISTRI WIDTH 15.7 % (11.5-15.5)
[2022-12-14 05:50] LABS: ALBUMIN 3.3 g/dL (3.2-5.0); CREATININE 1.8 mg/dL (0.7-1.3); MAGNESIUM 1.8 mg/dL (1.6-2.3); TOTAL PROTEIN 5.5 g/dL (6.3-8.2)
[2022-12-14 06:34] VITALS: BP 129/67
--- NOTE | 2022-12-14 08:00 | NUR ---
PT IN BED WITH HOB UP, PT IS ALERT AND OREINTED X3. PT C/O PAIN AT 3/10 ON PAIN SCALE TO FIBULA, WILL MEDICATE WHEN DUE. PT IV RAC CLEAN AND INTACT WITH NS @ 80 ML/HR INFUSING. PT LUNGS CLEAR. PT HAS BARRETT CATHETER DRAINING URINE STU IN COLOR. PT HAS CALL LIGHT WITHIN REACH AND ALL SAFETY MEASURES IN PLACE.
--- NOTE | 2022-12-14 12:00 | NUR ---
PT IN BED WITH HOB, ALERT AND ORIENTED X3. PT HAS C/O PAIN IN RLE AT 4/10 ON PAIN SCALE. PT REFUSES PAIN MEDICATION AT THIS TIME. PT HAS CALL LIGHT WITHIN REACH.
[2022-12-14 15:25] VITALS: BP 111/63
--- NOTE | 2022-12-14 16:00 | NUR ---
PT IN BED WITH HOB WATCHING TV. PT HAS NO C/O PAIN AT THIS TIME. PT STATES PAIN MEDICATION EFFECTIVE. PT HAS CALL LIGHT WITHIN REACH AND SAFETY MEASURES IN PLACE AT THIS TIME.
[2022-12-14 19:03] VITALS: BP 114/71
--- NOTE | 2022-12-14 20:00 | NUR ---
PATIENT SITTING UP IN BED AT THIS TIME-AWAKE ALERT AND ORIENTEDEX3. PATIENT DOESN'T APPEAR IN ANY DISTRESS. PATIENT WITH BARRETT CATH PATENT AND DRAINING STU URINE. IVF NS PATENT AND INFUSING VIA LEFT HAND SITE AT 80CC/HR. LUNGS ARE CLEAR AND ABD IS SOFT WITH ACTIVE BS. RLE ELEVATED ON PILLOW. PATIENT STATES THAT HE WOULD LIKE HIS TRAZADONE AND PAIN MED EARLY TONIGHT. MEDICATED WITH TRAZADONE 150MG PO AND WITH DILAUDID 1MG IVP FOR 9/10 PAIN SCALE. SAFETY PRECAUTIONS REINFORCED. CALL LIGHT IN REACH. WILL CONT TO MONITOR.
[2022-12-15] VITALS (7 sets, daily range): BP systolic 107–155; BP diastolic 56–85
--- NOTE | 2022-12-15 | NUR ---
PATIENT RESTING IN BED AT THIS TIME WITH NO COMPLAINTS AT THIS TIME. BARRETT PATENT AND DRAINING YELLOW URINE AT THIS TIME. COLOR HAS LIGHTENED UP WITH IVF. IVF NS PATENT AND INFUSING VIA LEFT HANDSITE. CALL LIGHT IN REACH. WILL CONT TO MONITOR.
--- NOTE | 2022-12-15 04:00 | NUR ---
PATIENT RESTING IN BED POSITIONED ON RIGHT SIDE. EYES ARE CLOSED AND RESPS ARE EVEN AND UNLABORED. BARRETT CATH PATENT AND DRAINING YELLOW URINE. IVF PATENT AND INFUSING VIA LEFT HAND SITE. CALL LIGHT IN REACH. WILL CONT TO MONITOR.
--- NOTE | 2022-12-15 05:49 | NUR ---
PATIENT RESTING IN BED-STATES THAT HE IS HAVE RLE PAIN BUT DOES NOT WANT ANY MORE DILAUDID-MADE HIM FEEL TOO WEIRD. MEDICATED WITH ROXICODONE 5MG PO FOR PAIN. BARRETT CATH BAG EMPTIED FOR YELLOW URINE. IVF PATENT AND INFUSING VIA LEFT HAND SITE. CALL LIGHT IN REACH. WILL CONT TO MONITOR.
[2022-12-15 05:52] LABS: BASO% 0.6 % (0-3); EOS% 1.1 % (0-8); HEMATOCRIT 38.7 % (39.0-50.0); HEMOGLOBIN 13.3 g/dl (14.0-18.0); IMMATURE GRANULOCYTES 0.2 % (0.0-5.0); LYMPH% 26.9 % (15-41); MEAN CELL VOLUME 93.9 fL CALC (80.0-100.0); MEAN CORPUSCULAR HGB 32.3 pG CALC (26.0-32.0); MEAN CORPUSCULAR HGB CONC 34.4 g/dL CAL (32.0-36.0); MONO% 15.8 % (2-13); NEUT# 2.94 thou/uL (1.82-7.42); NEUT% 55.4 % (42-76); RED BLOOD COUNT 4.12 mill/uL (4.70-6.10); RED CELL DISTRI WIDTH 15.6 % (11.5-15.5)
[2022-12-15 05:58] LABS: ALBUMIN 3.2 g/dL (3.2-5.0); ALKALINE PHOSPHATASE 60 u/l (38-126); ANION GAP 9 (6-22 (CALC)); BILIRUBIN, TOTAL 0.7 mg/dL (0.2-1.3); BUN 24 mg/dL (8-23); BUN/CREATININE RATIO 19 (12-20 (CALC)); CARBON DIOXIDE 24 mmol/l (22-30); CHLORIDE 103 mmol/l (95-108); CREATININE 1.2 mg/dL (0.7-1.3); GFR FOR AFR.AMER. > 60 ML/MIN (>=60 (CALC)); GFR OTHER RACES 60 ML/MIN (>=60 (CALC)); MAGNESIUM 1.8 mg/dL (1.6-2.3); POTASSIUM 4.5 mmol/l (3.5-5.1); SGOT/AST 27 u/l (19-48); SODIUM 131 mmol/l (137-146); TOTAL PROTEIN 5.6 g/dL (6.3-8.2)
--- NOTE | 2022-12-15 07:00 | NUR ---
SHIFT CHANGE REPORT, PT REPORT, PT RESTING IN BED IN HALLWAYS DUE TO ACTIVE "CODE VENKATESH" AT THIS TIME, NO C/O DISCOMFORT, IVF INFUSING, BED LOCKED IN LOWEST POSITION.
--- NOTE | 2022-12-15 12:00 | NUR ---
PAIN CONCERNS ADDRESED, WILL CONTINUE TO MONITOR.
--- NOTE | 2022-12-15 16:30 | NUR ---
STABLE, NO NEW COMPLAINS.
[2022-12-16] VITALS (7 sets, daily range): BP systolic 121–145; BP diastolic 65–81
--- NOTE | 2022-12-16 00:18 | NUR ---
PT ALERT AND ORIENTED X 3. MEDICATED FOR PAIN WITH GOOD EFFECT. IV FLUIDS INFUSING ORDERED. AUNDREA FLUIDS PO WELL. SLEEPING WELL. SAFETY PRECAUTIONS MAINTAINED. CALL LIGHT IN REACH
[2022-12-16 05:48] LABS: BASO% 0.6 % (0-3); EOS% 2.7 % (0-8); HEMATOCRIT 39.3 % (39.0-50.0); IMMATURE GRANULOCYTES 0.2 % (0.0-5.0); LYMPH% 21.9 % (15-41); MEAN CELL VOLUME 94.9 fL CALC (80.0-100.0); MEAN CORPUSCULAR HGB 31.4 pG CALC (26.0-32.0); MEAN CORPUSCULAR HGB CONC 33.1 g/dL CAL (32.0-36.0); MONO% 14.8 % (2-13); NEUT# 2.9 thou/uL (1.82-7.42); NEUT% 59.8 % (42-76); RED BLOOD COUNT 4.14 mill/uL (4.70-6.10); RED CELL DISTRI WIDTH 15.6 % (11.5-15.5)
[2022-12-16 06:10] LABS: ALBUMIN 3.2 g/dL (3.2-5.0); ALKALINE PHOSPHATASE 64 u/l (38-126); ANION GAP 9 (6-22 (CALC)); BILIRUBIN, TOTAL 0.8 mg/dL (0.2-1.3); BUN 14 mg/dL (8-23); BUN/CREATININE RATIO 13 (12-20 (CALC)); CARBON DIOXIDE 25 mmol/l (22-30); CHLORIDE 104 mmol/l (95-108); CREATININE 1.1 mg/dL (0.7-1.3); GFR FOR AFR.AMER. > 60 ML/MIN (>=60 (CALC)); GFR OTHER RACES > 60 ML/MIN (>=60 (CALC)); MAGNESIUM 1.6 mg/dL (1.6-2.3); POTASSIUM 4.1 mmol/l (3.5-5.1); SGOT/AST 27 u/l (19-48); SODIUM 134 mmol/l (137-146); TOTAL PROTEIN 5.6 g/dL (6.3-8.2)
--- NOTE | 2022-12-16 07:00 | NUR ---
RECEIVE REPORT FROM CHRIS.
--- NOTE | 2022-12-16 11:50 | NUR ---
BARRETT CATHETER IS CHANGED UNDER STERILE MEASURES ACCORDING TO VERBAL MEDICAL ORDER. PT TOLERATES WELL
--- NOTE | 2022-12-16 12:16 | NUR ---
PATIENT STABLE AT THE TIME OF THIS NOTE. IT IS OBSERVED RESTING IN THE BED. SAFETY AND FALL PRECAUTIONS IN PLACE. CALL LIGHT WITHIN IN REACH.
--- NOTE | 2022-12-16 16:12 | NUR ---
PATIENT STABLE AT THE TIME OF THIS NOTE. IT IS OBSERVED RESTING IN THE BED. SAFETY AND FALL PRECAUTIONS IN PLACE. CALL LIGHT WITHIN IN REACH.
--- NOTE | 2022-12-17 01:22 | NUR ---
PT ALERT AND ORIENTED X 3. BARRETT CATH PATENT AND DRAINING WELL DK YELLOW URINE. IV FLUIDS INFUSING ORDERED. RECEIVED PAIN MEDICATION FOR RLE DISCOMFORT. TURNS SELF IN BED. AUNDREA DIET AND FLUIDS WELL. VSS. SAFETY PRECAUTIONS MAINTAINED. CALL LIGHT IN REACH
--- NOTE | 2022-12-17 02:45 | NUR ---
PT STATES HE HAS NOT MOVED HIS BOWELS SINCE 12/12. PT WAS OFFERED PRN MILK OF MAGNESIA AND DECLINED. BOWEL SOUNDS PRESENT.
[2022-12-17 03:51] VITALS: BP 143/90
[2022-12-17 04:44] LABS: BASO% 0.9 % (0-3); HEMATOCRIT 38.1 % (39.0-50.0); HEMOGLOBIN 12.9 g/dl (14.0-18.0); IMMATURE GRANULOCYTES 0.9 % (0.0-5.0); LYMPH% 30.6 % (15-41); MEAN CELL VOLUME 94.5 fL CALC (80.0-100.0); MEAN CORPUSCULAR HGB CONC 33.9 g/dL CAL (32.0-36.0); MONO% 14.3 % (2-13); NEUT# 2.21 thou/uL (1.82-7.42); NEUT% 49.3 % (42-76); RED BLOOD COUNT 4.03 mill/uL (4.70-6.10); RED CELL DISTRI WIDTH 15.1 % (11.5-15.5)
[2022-12-17 05:07] LABS: ALKALINE PHOSPHATASE 60 u/l (38-126); ANION GAP 8 (6-22 (CALC)); BILIRUBIN, TOTAL 0.9 mg/dL (0.2-1.3); BUN 9 mg/dL (8-23); BUN/CREATININE RATIO 9 (12-20 (CALC)); CARBON DIOXIDE 26 mmol/l (22-30); CHLORIDE 104 mmol/l (95-108); GFR FOR AFR.AMER. > 60 ML/MIN (>=60 (CALC)); GFR OTHER RACES > 60 ML/MIN (>=60 (CALC)); MAGNESIUM 1.4 mg/dL (1.6-2.3); POTASSIUM 4.3 mmol/l (3.5-5.1); SGOT/AST 29 u/l (19-48); SODIUM 134 mmol/l (137-146); TOTAL PROTEIN 5.2 g/dL (6.3-8.2)
[2022-12-17 07:59] VITALS: BP 140/77
--- NOTE | 2022-12-17 08:00 | NUR ---
Patient sitting up in bed. Upset, requesting to be left alone to sleep. Patient given medications per emar. States he is having pain at a 6, but was medicated per emar approx 0700. Last BM 12/12. Patient refused Miralax per mission support specialist nurse. Patient scheduled for discharge to rehab 12/17. Lungs clear to ascultation. NAD noted. Bed in low position. Call light next to L hand. Will continue to monitor.
[2022-12-17 08:28] VITALS: BP 140/77
--- NOTE | 2022-12-17 12:29 | NUR ---
Patient lying in bed. Unable to have BM, suppository placed. Denies pain at this time. NAD noted. bed in low position. Call light next to R hand. Will continue to monitor.
[2022-12-17] MEDS ORDERED: OXYCODONE10 M1 PO (12:34)
--- NOTE | 2022-12-17 14:23 | NUR ---
Discharge instructions given. Patient verbalizes understanding of same. Discharged in stable condition via [facility]. All belongings sent with pt.
== END 2022-12-17 14:23 | DRG 563 ==
LOC: ED 15:34 → ED-I 18:00 → ED 18:57 → MS2 18:58
PROVIDERS: Nurse Practitioner Family; ADMIT Student in an Organized Health Care Education/Training Program; ATTEND Student in an Organized Health Care Education/Training Program
PROC: 3E0234Z Introduction of Serum, Toxoid and Vaccine into Muscle, Percutaneous Approach (ICD-10-PCS; principal; 2022-12-15)
PROC: 0T2BX0Z Change Drainage Device in Bladder, External Approach (ICD-10-PCS; 2022-12-16)
DX: S82.831A Other fracture of upper and lower end of right fibula, initial encounter for closed fracture (principal); Q60.0 Renal agenesis, unilateral; E87.1 Hypo-osmolality and hyponatremia; N17.9 Acute kidney failure, unspecified; I95.2 Hypotension due to drugs; T46.5X5A Adverse effect of other antihypertensive drugs, initial encounter; I10 Essential (primary) hypertension; N31.9 Neuromuscular dysfunction of bladder, unspecified; I25.10 Atherosclerotic heart disease of native coronary artery without angina pectoris; K59.00 Constipation, unspecified; F17.200 Nicotine dependence, unspecified, uncomplicated; W19.XXXA Unspecified fall, initial encounter; Y92.009 Unspecified place in unspecified non-institutional (private) residence as the place of occurrence of the external cause; Z23 Encounter for immunization; Z95.1 Presence of aortocoronary bypass graft; Z95.3 Presence of xenogenic heart valve; Z91.81 History of falling; Z60.2 Problems related to living alone; Z96.0 Presence of urogenital implants

== ENCOUNTER 2024-06-21 08:17 | Emergency (ER) | payer MEDICARE ==
[2024-06-21] VITALS (14 sets, daily range): BP systolic 83–133; BP diastolic 41–94
[~2024-06-21] VITALS: Ht 188 cm; Wt 99.8 kg
[~2024-06-21 08:17] MED LIST changes: +ABILIFY10 MG PO; +FUROSEMIDE20 MG PO; +OXYCODONE10 M1 PO; +PROTONIX40 MG PO
[2024-06-21 09:09] LABS: BASO% 0.3 % (0-3); EOS% 1.8 % (0-8); HEMATOCRIT 53.1 % (39.0-50.0); HEMOGLOBIN 17.5 g/dl (14.0-18.0); IMMATURE GRANULOCYTES 0.3 % (0.0-5.0); LYMPH% 16.9 % (15-41); MEAN CELL VOLUME 93.2 fL CALC (80.0-100.0); MEAN CORPUSCULAR HGB 30.7 pG CALC (26.0-32.0); MONO% 12.4 % (2-13); NEUT# 4.51 thou/uL (1.82-7.42); NEUT% 68.3 % (42-76); RED BLOOD COUNT 5.7 mill/uL (4.70-6.10); RED CELL DISTRI WIDTH 14.4 % (11.5-15.5)
[2024-06-21 09:11] LABS: URINE BILIRUBIN - DIPSTICK Negative (NEGATIVE); URINE BLOOD DIPSTICK Trace-intact (NEGATIVE); URINE GLUCOSE - DIPSTICK Negative (NEGATIVE); URINE KETONE Trace mg/dL (NEGATIVE); URINE LEUK ESTERASE Trace (NEGATIVE); URINE PH 5.5 (4.5-8.0); URINE PROTEIN - DIPSTICK >=300 mg/dL (NEG-TRACE); URINE SPECIFIC GRAVITY 1.025; URINE UROBILINOGEN - DIPSTICK 0.2 E.U./dL (0.2)
[2024-06-21 09:14] LABS: URINE COLOR Yellow; URINE NITRITE - DIPSTICK Positive (Negative)
[2024-06-21 09:18] LABS: URINE WBC 20-50 WBC/hpf (0-5)
[2024-06-21 09:19] LABS: URINE BACTERIA MANY hpf; URINE HYALINE CAST FEW lpf (NONE-RARE)
[2024-06-21 09:20] LABS: ALBUMIN 4.2 g/dL (3.2-5.0); ALKALINE PHOSPHATASE 72 u/l (38-126); ANION GAP 11 (6-22 (CALC)); BUN 24 mg/dL (8-23); BUN/CREATININE RATIO 16 (12-20 (CALC)); CARBON DIOXIDE 20 mmol/l (22-30); CHLORIDE 108 mmol/l (95-108); CREATININE 1.5 mg/dL (0.7-1.3); ESTIMATED GFR 50 ML/MIN (>=90 (CALC)); POTASSIUM 4.4 mmol/l (3.5-5.1); SGOT/AST 43 u/l (19-48); SODIUM 134 mmol/l (137-146); TOTAL PROTEIN 7.1 g/dL (6.3-8.2)
[2024-06-21] MEDS ORDERED: SULFAMETHOXAZOLE W/TRIMETHOPRI 1 COMBO TAB PO ONE (09:20)
[2024-06-21] MEDS ORDERED: BACTRIM DS1 TAB PO (11:28)
[2024-06-21] MEDS ORDERED: PROTONIX40 MG PO (11:28)
== END 2024-06-21 11:44 | disposition home or self-care (01) ==
LOC: ED 08:17
PROVIDERS: Emergency Medicine
DX: N39.0 Urinary tract infection, site not specified (principal); B96.20 Unspecified Escherichia coli [E. coli] as the cause of diseases classified elsewhere; N31.9 Neuromuscular dysfunction of bladder, unspecified; N18.9 Chronic kidney disease, unspecified; R33.9 Retention of urine, unspecified; I25.10 Atherosclerotic heart disease of native coronary artery without angina pectoris; F17.210 Nicotine dependence, cigarettes, uncomplicated; Z86.73 Personal history of transient ischemic attack (TIA), and cerebral infarction without residual deficits; Z91.81 History of falling